=== PATIENT | female | born 1990 | race African-American/Black ===

== ENCOUNTER 2021-02-17 21:06 | Emergency (ER) | payer OTHER ==
[~2021-02-17] VITALS: Ht 177.8 cm; Wt 68.0 kg
[2021-02-17] MEDS ORDERED: ONDANSETRON HCL INJ 2MG/ML 2ML 2 MG/ML VIAL ONE (21:35)
[2021-02-17] MEDS ORDERED: PROPOFOL IV EMULSION 10 MG/ML 20 ML VIAL ONE (21:36)
[2021-02-17] MEDS ORDERED: MORPHINE SULFATE INJ 4 MG/ML INJ 1ML ONE (21:36)
[2021-02-17] MEDS ORDERED: FENTANYL CITRATE/PF 100MCG/2 ML INJ ONE (22:01)
[2021-02-17] MEDS ORDERED: ONDANSETRON HCL INJ 2MG/ML 2ML 2 MG/ML VIAL IV STA (22:09)
[2021-02-17] MEDS ORDERED: MORPHINE SULFATE INJ 4 MG/ML INJ 1ML IV STA (22:09)
[2021-02-17] MEDS ORDERED: FENTANYL CITRATE/PF 100MCG/2 ML INJ IV ONE (22:15)
[2021-02-17] MEDS ORDERED: HYDROCODON-ACE1 EA11 PO (22:42)
[2021-02-17] MEDS ORDERED: CYCLOBENZAPRINE10 MG PO (22:47)
== END 2021-02-17 23:30 | disposition home or self-care (01) ==
LOC: FSED 21:20
DX: M25.512 Pain in left shoulder (principal); S43.085A Other dislocation of left shoulder joint, initial encounter; X50.1XXA Overexertion from prolonged static or awkward postures, initial encounter; Y92.89 Other specified places as the place of occurrence of the external cause; F17.210 Nicotine dependence, cigarettes, uncomplicated
CPT/HCPCS: 23655; 73020; 81025; 99284; J2270; J2405; J2704; J3010